=== PATIENT | male | born 1980 | race Caucasian/White ===

== ENCOUNTER 2016-04-26 11:28 | Inpatient (IN) | payer OTHER ==
[~2016-04-26] VITALS: Ht 175.3 cm; Wt 100.7 kg
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
--- NOTE | ~2016-04-26 | CLPRLASSUM ---
PATIENT: NICKOLAS LYMAN | | [facility] UNIT #: [id number] | [address] AGE/SEX: 36 M : 82 | [address] | [place] [phone] ADMIT/REG DATE: 04/26/16 | ROOM: [facility] LOC: ADTC | ADTC | Client Problem List/Assessment Summary Date: 05/01/16 Problems identified by the client: addiction, family, self-will/stubbornness-lack of HP, low self-esteem/forgiveness of others and self, relapse prevention Problems identified by significant others: addiction, codependency("depend on women to make me feel good about myself") Client's Strengths: big heart, strong will(need to be stubborn for working the program) Problem List: Code: T Client continues to use alcohol and drugs despite ongoing negative consequences. Code: T Client is experiencing family and distancing as a result of past alcohol & drug usage. Code: T Client continually sabotages his recovery by pushing others and God away because of his stubbornness/self-will which leads back to his abuse of chemicals. Code: T Client struggles with forgiving self (low self-esteem) and others which hurts his recovery. Code: T Client relapsed after prior treatments, partly due to codependency/seeking happiness from women relationships. Code Aviles: T: to be addressed during course of treatment O: problem noted, expected to resolve itself with abstinence--specific tx plan not required R: problem noted, will be referred upon discharge PRIMARY COUNSELOR: Alisson De Leon
--- NOTE | ~2016-04-26 | TXPLANREV ---
"PATIENT: NICKOLAS LYMAN | | [facility] UNIT #: [id number] | [address] AGE/SEX: 36 M : 82 | [address] | [place] [phone] ADMIT/REG DATE: 04/26/16 | ROOM: [facility] LOC: ADTC | ADTC | Treatment Plan/Staffing Review Date: 05/10/16 Treatment plan was reviewed and determined appropriate as written: yes, client is working on Yovia letters and son was able to come to the family program. Treatment plan was reviewed and the following changes/addition/deletions are necessary: Discharge plans were reviewed and determined appropriate as previously documented: Discharge plans were reviewed and determined to be as follows: Client is scheduled to discharge on 05/24/16, was applying to the [facility] who said there are at least 4-5 ahead of him and no scheduled opening for him in next couple months. His HHS worker is paying for his rent while here and wants to reunite him as soon as he gets out so could do outpatient treatment following residential. Other pertinent issues discussed during this staffing review include: Client has voiced wanting to be done with treatment as has had multiple prior treatments but staff voiced that he has sabotaged self in past and needs to learn what he is missing. Staff Present: Carmen Almaraz, Zara Tavarez, Page Rucker, Jonh Suarez PRIMARY COUNSELOR: Alisson De Leon Client Signature Counselor Signature Date Time "
--- NOTE | ~2016-04-26 | INDIVTXPL2 ---
"PATIENT: NICKOLAS LYMAN | | [facility] UNIT #: [id number] | [address] AGE/SEX: 36 M : 82 | [address] | [place] [id number] ADMIT/REG DATE: 04/26/16 | ROOM: [facility] LOC: ADTC | ADTC | Individualized Treatment Plan DATE: 05/03/16 Problem Statement/Issue Identified: Client continues to use alcohol and drugs despite ongoing negative consequences. Goal: Client is to learn about alcoholism/drug addiction, identifying his consequences of his use and learn how to work a stronger program of recovery to stay clean/sober. Objectives/Activities to achieve goal: 1. Client is to fill out Getting Started and Step 1 packet, identifying 10-15 ways his use hurt him/others. Share with counselor and share in group. Due Date: 05/10/16 Complete: Incomplete: 2. Client is to get and use sponsor weekly while in treatment as didn't use sponsor in prior recovery attempts. Report progress to counselor. Due Date: ongoing Complete: Incomplete: 3. Client is to attend and talk at AA/NA meetings weekly, pick topic in meeting on a relapse trigger to get ideas/help and share progress with counselor. Due Date: ongoing Complete: Incomplete: Client Signature Date Counselor Signaure: Date Outcome/Measurement of Progress Towards Goal: Counselor Signature: Date "
--- NOTE | ~2016-04-26 | INDIVTXPL2 ---
"PATIENT: NICKOLAS LYMAN | | [facility] UNIT #: [id number] | [address] AGE/SEX: 36 M : 82 | [address] | [place] [phone] ADMIT/REG DATE: 04/26/16 | ROOM: [facility] LOC: ADTC | ADTC | Individualized Treatment Plan DATE: 05/10/16 Problem Statement/Issue Identified: Client is experiencing family and distancing as a result of past alcohol & drug usage. Goal: Client is to attend Family Program and look at how his addiction hurts him and family, and work on owning his behavior/feelings/building better communication with family. Objectives/Activities to achieve goal: 1. Client is to attend Family Educational Program (with son if son can come) and participate in family program. See notes. Due Date: 05/14/16 Complete: Incomplete: 2. Client is to have family session with son (if son can come) and work on better communication. See counselor notes. Due Date: ongoing Complete: Incomplete: 3. Client is to write feelings letters to help process feelings with/about family members. Share with group/son/counselor. See notes. Due Date: ongoing Complete: Incomplete: Client Signature Date Counselor Signaure: Date Outcome/Measurement of Progress Towards Goal: Counselor Signature: Date "
--- NOTE | ~2016-04-26 | INDIVTXPL2 ---
"PATIENT: NICKOLAS LYMAN | | [facility] UNIT #: [id number] | [address] AGE/SEX: 36 M : 82 | [address] | [place] [phone] ADMIT/REG DATE: 04/26/16 | ROOM: [facility] LOC: ADTC | ADTC | Individualized Treatment Plan DATE: 05/10/16 Problem Statement/Issue Identified: Client relapsed after prior treatments, partly due to codependency/seeking happiness from women relationships. Goal: Client is to learn about relapse prevention/codependency, identifying his relapse triggers and develop a plan of how to avoid relapse. Objectives/Activities to achieve goal: 1. Attend Relapse Prevention classes every Saturday and participate. See class note. Due Date: 05/24/16 Complete: Incomplete: 2. Client is to attend lecture on Codependency and read symptoms of unhealthy relationships. Discuss with counselor how he relates. Due Date: 05/15/15 Complete: Incomplete: 3. Fill out Relapse Prevention packet identifying top 5-10 relapse triggers, share with counselor and discuss ways to cope and succeed in recovery. Due Date: 05/24/16 and ongoing Complete: Incomplete: Client Signature Date Counselor Signaure: Date Outcome/Measurement of Progress Towards Goal: Counselor Signature: Date "
--- NOTE | ~2016-04-26 | INDIVTXPL2 ---
"PATIENT: NICKOLAS LYMAN | | [facility] UNIT #: [id number] | [address] AGE/SEX: 36 M : 82 | [address] | [place] [phone] ADMIT/REG DATE: 04/26/16 | ROOM: [facility] LOC: ADTC | ADTC | Individualized Treatment Plan DATE: 05/10/16 Problem Statement/Issue Identified: Client continually sabotages his recovery by pushing others and God away because of his stubbornness/self-will which leads back to his abuse of chemicals. Goal: Client is to work on building closer reliance on Sponsor, HP/God, AA/NA and learn how to not sabotage self/his recovery by relying on self-will. Objectives/Activities to achieve goal: 1. Client is to read page 62 of Big Book and discuss 3 ways he sees it applying to himself with counselor. Due Date: 05/17/16 Complete: Incomplete: 2. Client is to continue talking with sponsor while in treatment, plus praying to HP daily. Share progress with counselor. Due Date: ongoing Complete: Incomplete: 3. Client is to attend and participate in Spirituality Class every Saturday while in treatment. See notes. Due Date: 05/24/16 Complete: Incomplete: Client Signature Date Counselor Signaure: Date Outcome/Measurement of Progress Towards Goal: Counselor Signature: Date "
--- NOTE | ~2016-04-26 | INDIVTXPL2 ---
"PATIENT: NICKOLAS LYMAN | | [facility] UNIT #: [id number] | [address] AGE/SEX: 36 M : 82 | [address] | [place] [phone] ADMIT/REG DATE: 04/26/16 | ROOM: [facility] LOC: ADTC | ADTC | Individualized Treatment Plan DATE: 05/10/16 Problem Statement/Issue Identified: Client struggles with forgiving self (low self-esteem) and others which hurts his recovery. Goal: Client is to work on building his self-esteem and ability to forgive self/others to strengthen his recovery. Objectives/Activities to achieve goal: 1. Client is to write 10 good qualities about himself and intervew 4 staff and 6 peers to name 2 qualities they see in him(he is to add them to his list). Share with counselor. Due Date: 05/22/16 Complete: Incomplete: 2. Client is to read 552, process his feelings/resentments he has with parents with counselor and/or group. Due Date: 05/24/16 Complete: Incomplete: Client Signature Date Counselor Signaure: Date Outcome/Measurement of Progress Towards Goal: Counselor Signature: Date "
--- NOTE | ~2016-04-26 | TXPLANREV ---
"PATIENT: NICKOLAS LYMAN | | [facility] UNIT #: [id number] | [address] AGE/SEX: 36 M : 82 | [address] | [place] [phone] ADMIT/REG DATE: 04/26/16 | ROOM: [facility] LOC: ADTC | [facility] | Treatment Plan/Staffing Review Date: 05/17/16 Treatment plan was reviewed and determined appropriate as written: Client is finishing up his Relapse Prevention packet, is working on trusting others to help him instead of self-will. Start on self-esteem Treatment plan was reviewed and the following changes/addition/deletions are necessary: Will add write letter apologizing/making ammends to self!! Discharge plans were reviewed and determined appropriate as previously documented: Client is scheduled to discharge on 05/24 but it is now changed to 05/22/16 so he can get to work as has rent due 05/30/16 plus will be having son come and live with him. He will be referred to aftercare counseling and group here at [facility] along with 3-7 AA/NA meetings a week and talking to sponsor daily. Discharge plans were reviewed and determined to be as follows: Other pertinent issues discussed during this staffing review include: Client has certainly made visible progress this past week with setting aside self-will and showing acceptance and trust of others helping him and listening to their suggestions. He also admits he never fully accepted powerlessness until [facility] took his son, which hurt him terribly that he is fully ready to work this AA program and got an AA sponsor. He states he did NA before but likes AA best and never had a sponsor he used before, so is not doing 1/2measures this time. Staff Present: Dinesh Almaraz, Zara Tavarez, Page Rucker, Ana Laura Garrett, Elliott [place] PRIMARY COUNSELOR: Alisson Moises Client Signature Counselor Signature Date Time "
--- NOTE | 2016-04-26 14:11 | NUR ---
ADMISSION NOTE Client is a 36 y/o male referred to treatment by Riana and brought here today from their [facility] by CSU staff. Client had been in the CSU for 6 days. Client states NKMA and brings no medications with him today. Client states DOC is meth, last used 6 days ago in the amount of 0.25 oz. Client resides in [place] alone and is unsure of family participation in family group. Rights/Responsibilities: Copy given and explained to client. Signed and accepted by client. Client oriented to physical lay out of the ADTC unit, given Big Book and admission packet. A Jose was assigned. Mike
--- NOTE | 2016-04-26 15:30 | NUR ---
IS 1 hr/ Client and counselor got reacquainted, he was oriented to counseling and his GS packet which is his first assignment. He asked does he have to do everything he did last tx, and counselor said think of GS as what he wants his peers to know to better support/help him in recovery. He says he has never used the sponsor and didn't ever do step 4. He was at [facility] for 3 months and had good recovery he felt, he was dating a gal he met in treatment but he didn't see her much cause busy with house, job, son and when got custody of son had to leave the [facility] but didn't do any aftercare at that point, and spent more time with female, he shared he is all about "fixing" others and so needs help with codependency. This treatment he says he will have nothing to do with women, he wants his son back and actually is greatful to the [facility] intervention when his son didn't show up to school, as it helped motivate him to get here. He says he can't focus unless on meth, he feels normal on meth, he was tearful but fought the tears back. Client said he knows his son is mad at him, age 13, and is living with sister. He would love to go back to [facility] "It was great, they helped him with budgeting, EMDR," and more. He wishes he could stay there 6 months but his son may not be able to live with sister that long. Client says lorrie his GF cheated on him he freaked out and hurt himself to get even, which he said this is what he does and it doesn't hurt anyone but himself. He was tearful as he said his son is doing same thing by refusing to go to school, being rebellious, etc. Plan to go over BPS next session.
--- NOTE | 2016-04-26 18:28 | NUR ---
Education: 1 Hour. Client watched "Picking up the Pieces" video.
--- NOTE | 2016-04-26 22:50 | NUR ---
Tech note: Clt played a game for recreation and attended onsite AA mtg. Clt was searched, checked into rooms, seen by and had first intro to grp. SE was coming to tx
--- NOTE | 2016-04-27 04:09 | NUR ---
tech note: client was motionless in no distress at all bed checks.
--- NOTE | 2016-04-27 13:00 | NUR ---
PEER REVIEWS 1 HR: Clt participated in peer review process and was able to give open and honest feedback to those receiving a review.
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
--- NOTE | 2016-04-27 16:02 | NUR ---
Tech Note: Client watched a film entitled "Nightmare on [address]" and is working on Getting Started.
--- NOTE | 2016-04-27 22:53 | NUR ---
TECH NOTE: Client participated in reading guidelines, watched tv/movies, and attended off site AA meeting. SE: tori
--- NOTE | 2016-04-28 04:20 | NUR ---
BED NOTE: Client was in bed, motionless with eyes closed all bed checks
--- NOTE | 2016-04-28 16:17 | NUR ---
Tech Note: Client went to an off-site AA Meeting. Client stated that he is working on Step One and "Grief."
--- NOTE | 2016-04-28 21:06 | NUR ---
Tech note: Client watched basketball or worked on beaded projects for rec, attended offsite AA meeting. Watched Tv and movies SE:rec-doing beads
--- NOTE | 2016-04-29 04:25 | NUR ---
BED NOTE: Client was in bed, motionless with eyes closed first two checks, Was in RR last check
--- NOTE | 2016-04-29 16:42 | NUR ---
Tech Note: Client participated in Big Book Study, chapter two. Client stated that he is working on, "Grief." Client received visitors.
--- NOTE | 2016-04-29 17:04 | NUR ---
Tech Note: Client had his sister and his son come in for a visit. The sister brought a pair of track pants and a hoodie in for the client. They had been recently purchased and a receipt accompanied the clothing. Client asked me if we ([employer]) could get into the safe. He was told that he would have to ask during normal business hours (8 to 5, M-F). A very short time later client and sister were walking toward the tech station and were arguing. Tech heard sister state "I didn't come here to put up with your shit" and client responded "well go ahead and leave then". Sister did leave, with client's son. Tech asked client what the argument was about. Client stated that sister expected to be immediately reimbursed for clothing. Client also said that sister made a comment that it was "his problem that he is here in treatment".
--- NOTE | 2016-04-29 22:57 | NUR ---
Tech Note : Client attended AA panel/speaker. Client went to an onsite SITE PROJECT MANAGER meeting. SE: Family visit
--- NOTE | 2016-04-30 04:54 | NUR ---
Bed note : Client was asleep and in no distress at all bed checks. Client did get up at 12;30 to state that it was to hot in his room.
--- NOTE | 2016-04-30 09:55 | NUR ---
Tech notes: Client is working on Getting started.
--- NOTE | 2016-04-30 11:30 | NUR ---
Experiential Group 1.5 hr/ Clients all participated in Family sculpturing by role-playing, feedback or relating. They also shared about coming from healthy and unhealthy homes.
--- NOTE | 2016-04-30 13:26 | NUR ---
Education note: Client watched a video "It can't happen to me".
--- NOTE | 2016-04-30 16:00 | NUR ---
RECOVERY 101 1 HR/ Clients all shared and asked questions in discussions on recovery, what to work on in treatment, how to get a sponsor, opening up while here to get everything out, feelings letters, family program and EMDR therapy.
--- NOTE | 2016-04-30 18:08 | NUR ---
Education Note: 1 hour lecture on feelings given by counselor
--- NOTE | 2016-04-30 22:35 | NUR ---
TECH NOTE: Client played charHeadspace in REC and attended on site NA meeting. SE: trying to work on his language
--- NOTE | 2016-05-01 04:23 | NUR ---
Bed note: Client was in bed with eyes closed and no distress at all bed checks, except up at 2nd bed check to use bathroom and get drink
--- NOTE | 2016-05-01 11:25 | NUR ---
FAMILY NOTE- Clients sister and dad were called with no answer. Clients dad had come to the family program at 2pm but no release was found so he was turned away (they had come a week early) and he had brought a different relative that client said he doesn't want in the family program. Did call clients dad and client left voicemail that he can come to family and if could bring his son too. Counselor called a 2nd time but no answer. Client said he would try to call his sister in the evening after work.
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
--- NOTE | 2016-05-01 14:47 | NUR ---
Education 0.5 Hour: Client attended a presentation by an outwside speaker who spoke on, "Cross Addiction."
--- NOTE | 2016-05-01 14:55 | NUR ---
Tech Note: Client particiipated in light stretching for morning exercise period and went for an outdoor walk in the afternoon. Client stated that he is working on, "How to Get Started in Treatment."
--- NOTE | 2016-05-01 18:48 | NUR ---
Relapse Prevention: 1.0 hours, 04/17, Client attended and actively participated in relapse prevention education which focused on identifying internal relapse triggers and cues.
--- NOTE | 2016-05-01 22:59 | NUR ---
Tech note: Client participated in beaded project for rec and attended an onsite AA meeting. SE; Meeting with counselor
--- NOTE | 2016-05-02 03:56 | NUR ---
Bed Note; Client was asleep and in no distress at all bed checks.
--- NOTE | 2016-05-02 09:30 | NUR ---
[facility] Track [facility]aser met with clts after community because he mentioned being concerned about needing to go to lab for a blood. He was rubbing his arm and turned white. I work with him after [facility] by helping him install a safe place to use while at the lab. I did ask him to continue to use every night. He was familiar with EMDR from the [facility].
--- NOTE | 2016-05-02 09:53 | NUR ---
Tech notes: Client is working on Getting started , Fl's and mtg with marisa.
--- NOTE | 2016-05-02 11:30 | NUR ---
GROUP 1.5 HRS. 1:11 Group discussion included family issues and HOW TO GET STARTED IN TREATMENT assignments. This client actively involved in discussion and offered insightful feedback to peers. He is redirected to allow others a chance to share.
--- NOTE | 2016-05-02 12:43 | NUR ---
Education note: Client attended education by [facility].
--- NOTE | 2016-05-02 17:50 | NUR ---
SPIRITUaL EDUCATION 1 HR. Todays topic after orienting newcomers was GRATITUDE with information taken from ATTITUDES OF GRATITUDE.
--- NOTE | 2016-05-02 19:18 | NUR ---
Education: 1 Hour. Client attended "Unresloved Anger" lecture and discussion presented by staff.
--- NOTE | 2016-05-02 22:59 | NUR ---
Tech note; Client played catch phrase for rec and attended an onsite NA meeting. SE; Having his blood drawn.
--- NOTE | 2016-05-03 04:29 | NUR ---
Bed Note: Client was asleep and in no distress at all bed checks.
--- NOTE | 2016-05-03 10:39 | NUR ---
Tech Note: Client participated in light stretching for morning exercise and stated that he is working on writing a Feeling Letter.
--- NOTE | 2016-05-03 14:17 | NUR ---
Group 1.5 Hr Ratio 1:11/Topics today were a feelings letter and a GS packet. Client shared how he could relate to having a difficult time writing feelings lettes and having expatations of others.
--- NOTE | 2016-05-03 17:00 | NUR ---
FAMILY EDUCATION 3 HRS. Client was accompanied by his dad. They took part in the discussion on the disease concept. Client shared chemical history and consequences. Dad shared that he is recovering alcoholic sober 2 years.
--- NOTE | 2016-05-03 17:47 | NUR ---
Education 1 Hour: Client heard a presentation from a member of the recovery community who shared his experience, strength and hope.
--- NOTE | 2016-05-03 23:36 | NUR ---
TECH NOTE: Client played Catch Phrase for REC, participated in Guided Meditation and attended on site AA meeting. Redirected for laughing during GM SE: REC
--- NOTE | 2016-05-04 02:16 | NUR ---
Education 1HR: Clt watched educational video entitled "Don't Meth With Me".
--- NOTE | 2016-05-04 04:51 | NUR ---
BED NOTE: Client was in bed, eyes closed and motionless all three bed checks
--- NOTE | 2016-05-04 11:30 | NUR ---
Group 1.5hr/ 11:1 Clients heard peer share GS packet, gave feedback and got into deep discussions about recovery.
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
--- NOTE | 2016-05-04 15:34 | NUR ---
Tech Note: Client watched a video entitled "The Enablers" and is working on Feelings Letters.
--- NOTE | 2016-05-04 20:43 | NUR ---
TECH NOTE: Client participated in reading guidelines, watched TV/movies, used phone and attended off site AA meeting SE: meeting with counselor
--- NOTE | 2016-05-05 04:46 | NUR ---
BED NOTE: Client was in bed, motionless with eyes closed all bed checks.
--- NOTE | 2016-05-05 09:58 | HP ---
ADMIT: 04/26/2016 RM/LOC: [facility] MR#: [id number] [facility] [address] [place] [id number] NICKOLAS LYMAN [address] [place] [address] History and Physical SEX: M AGE: 36 : 1980 DATE OF SERVICE: CHIEF COMPLAINT: Chemical dependency. HISTORY OF PRESENT ILLNESS: The patient is a 36-year-old , white male, admitted to residential level treatment at [facility] after detox at [facility] April 20 through the . [facility] Protective Services came to evaluate a complaint, and they asked him to submit a urine for drug screen. He submitted it and had a dirty for meth. His 13-year-old son was then removed from his house and place in Child Protective Services. He checked himself into treatment, wants to get clean, straight, and sober, so he can regain custody of his son. Nickolas' drug of choice on admission is methamphetamines. He first started using it around 13 years of age with cousins. He states he has done it daily off and on ever since. He has been doing IV off and on for years. His heaviest years use was 2012 to 2015, when he used up to an 8-ball or two daily. States since going through treatment and getting out in May 2015, he was clean for a number of months. He ultimately relapsed and states he relapsed probably sometime last summer. States he was using meth daily for probably 4 to 6 months. He has used up to an 8-ball a day via IV. He denies sharing needles or using dirty needles. He states he was dealing out of his home for 3 or more months. He denies any current legal charges pending. Second drug of choice is cannabis. He states he initially started smoking that with his cousins as well n grade school. In grade school, he smoked about once a month. In [employer], he smoked it daily off and on. About high school, he was smoking up to 0.5 ounce a week and smoked on a daily basis. His heaviest use was 17 to 26 when he smoked a 0.5 ounce a week. States he uses marijuana intermittently over the last 5 years. States since getting out of treatment last May, he has only used marijuana twice. Third drug of choice is alcohol. He first started drinking at 8 years of age with his father. In grade school, he drank once a year. In [employer], he drank 6 to 8 beers on weekends. In high school, he drank 12 to 13 beers on weekends. His heaviest drinking was 19 to 31 when he would have 4 to 6 beers every night, 6 to 12 plus hard liquor on weekends. He admits to 1 prior DUI. No history of alcohol withdrawal seizures are noted. States he has only drank 1 or 2 times in the last year. Additionally, he admits to using cocaine, once acid, once heroin, once mushrooms around 15 times in the past. PAST MEDICAL HISTORY: OPERATIONS: Include appendectomy and a benign lesion on his right chest. ILLNESSES: Include a history of sleep disorder in the past along with chronic anxiety, but after further discussion, he thinks he likely had ADHD as a child ADMIT: 04/26/2016 RM/LOC: [facility] MR#: [id number] [address] [place] [id number] NICKOLAS LYMAN [address] [place] [id number] History and Physical SEX: M AGE: 36 : 1980 and problems concentrating, sitting down and staying on task and continues to struggle with that. MEDICATIONS: None. ALLERGIES: NONE KNOWN. SOCIAL HISTORY: Is that of a 36-year-old, white male. He previously worked as a izabella. He has 4 children, 1 of which he had previously had custody. He quit smoking in March 2016. FAMILY HISTORY: Includes coronary artery disease in his mother and paternal grandmother, cancer in paternal grandfather, diabetes in maternal and paternal grandmothers, stroke in paternal grandmother. Most of his cousins and relatives including parents drink and do drugs. Grandparents did not use drugs or alcohol. REVIEW OF SYSTEMS: Remarkable for anxiety, insomnia, and problems concentrating and staying on task. Remainder review of systems are negative. PHYSICAL EXAMINATION: VITAL SIGNS: He is currently 5 foot 9 inches, with a weight of 100.7 kg. Blood pressure 128/77, pulse 87, and temp 97.5. GENERAL APPEARANCE: Is that of a 36-year-old athletic, very muscular male, who is alert, oriented, in no acute distress. HEENT: Pupils are reactive. Extraocular muscles are intact. TMs normal. Throat unremarkable. NECK: Without nodes or masses. Dentition, good repair. HEART: Regular without murmur. LUNGS: Clear. ABDOMEN: Soft, nontender, benign. /RECTAL: Deferred. EXTREMITIES: Reveal no clubbing, cyanosis, edema, or splinter hemorrhages. NEURO: Grossly normal including light touch, strength, DTRs. LABORATORY DATA: Labs done in [facility] on April 20 include a CBC, UA, and chemistry panel that are normal. ASSESSMENT: 1. Stimulant use disorder, severe with history of IV use. 2. Cannabis use disorder, severe, in partial remission. ADMIT: 04/26/2016 RM/LOC: [facility] MR#: [id number] [facility] [address] [place] [phone] NICKOLAS LYMAN [address] [place] [id number] History and Physical SEX: M AGE: 36 : 1980 3. Alcohol use disorder, severe, in partial remission. 4. Substance-induced mood disorder. 5. Rule out attention-deficit hyperactivity disorder and increased risk for human immunodeficiency virus and hepatitis C given his history of IV drug use. PLAN: We will place him on a multivitamin. We will place him on a Wellbutrin for substance-induced mood disorder and probable ADHD. Obtain HIV and hepatitis C testing on him given his increased risk of exposure. We will proceed with drug and alcohol abuse dependency treatment and counseling and further evaluation and management based on course during hospitalization. Please see his hospital record for the details. Cristopher Marks MD/ kandis JOB #: [id number] CC: Cristopher Marks, Attending Physician NO FAMILY PHYSICIAN, Family Physician
--- NOTE | 2016-05-05 15:35 | NUR ---
Tech notes: Client attended NA panel this morning and working on Step 1, Fl's. Had visit.
--- NOTE | 2016-05-05 18:37 | NUR ---
tech note: client attended offsite recovery event.
--- NOTE | 2016-05-06 04:37 | NUR ---
Bed Note: Clt lay motionless in bed with eyes closed showing no distress at all bed checks.
--- NOTE | 2016-05-06 15:06 | NUR ---
Tech Note: Client participated in big book study and is working on step 1 and FL's.
--- NOTE | 2016-05-06 23:12 | NUR ---
Tech note: Watched Floxxbowdoc, attended [employer] meeting SE:angelo
--- NOTE | 2016-05-07 04:33 | NUR ---
BED NOTE: Client was in bed, motionless, with eyes closed all bed checks.
--- NOTE | 2016-05-07 10:19 | NUR ---
Tech notes: Client is working on Step 1.
--- NOTE | 2016-05-07 11:30 | NUR ---
Group 1.5hr/ 2:22 Clients all participated in THE WALL reading, drawing and sharing about their flores with the group showing character defects and relapse triggers, plus what has helped them go gain hope and support in taking down their wall.
--- NOTE | 2016-05-07 12:50 | NUR ---
Education note: Client attended education by [facility], HIV testing.
--- NOTE | 2016-05-07 18:19 | NUR ---
Education: 1 Hour. Client attended "Forgiveness" lecture given by staff.
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
--- NOTE | 2016-05-07 22:45 | NUR ---
tech note: client attended Family. Client was redirected for using loud foul language in the hallway after the NA meeting. SE: Family.
--- NOTE | 2016-05-08 05:12 | NUR ---
Tech Note: Clt lay motionless in bed with eyes closed showing no distress at all bed checks.
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
--- NOTE | 2016-05-08 13:50 | NUR ---
Education 1 Hour: Client attended a presentation on "Tobacco Educaton."
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
--- NOTE | 2016-05-08 15:16 | NUR ---
Tech Note: Client participated in light stretching for morning exercise and walked in the halls in the afternoon. Client stated that he is working on reading the Big Book and writing Feelings Letters.
--- NOTE | 2016-05-08 15:55 | NUR ---
Relapse Prevention, 1.0, Client attended and actively participated in relapse prevention education which focused on the relapse quiz "What Do You Know About Relaps?"
--- NOTE | 2016-05-08 22:42 | NUR ---
Education note: 1 hour, lecture given by counselor on what ahumada are you willing to pay.
--- NOTE | 2016-05-08 22:58 | NUR ---
Tech note: Instead of rec clients went to an alumni meeting and attended an onsite AA meeting. His S/O was at the meeting. SE; Group
--- NOTE | 2016-05-09 04:17 | NUR ---
Bed Note: Client was in bed with eyes closed and in no distress at all bed checks. Did get up for a drink around 4am.
--- NOTE | 2016-05-09 10:22 | NUR ---
Tech Notes: Client is working on Step 1.
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
--- NOTE | 2016-05-09 17:53 | NUR ---
ducation Note: Client attended education speaker Zheng
--- NOTE | 2016-05-09 20:41 | NUR ---
Education: 1 hour lecture on boundaries given by counselor
--- NOTE | 2016-05-09 22:09 | NUR ---
Tech note : Client participated in rec by playing catch phrase and attended an onsite NA meeting. SE; loosing 5 peers
--- NOTE | 2016-05-10 03:50 | NUR ---
Bed note : Client was motionless and in no distress at all bed checks.
--- NOTE | 2016-05-10 10:16 | NUR ---
Tech Note: Client participated in light stretching for morning exercise. Client stated that he is working on Step One.
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
--- NOTE | 2016-05-10 13:37 | NUR ---
SPIRITUAL EDUCATION 1 HR. Topics today were on getting out of self centered behavior and recovery slogans. Clients made BB bookmarks w slogans and also anonymously wrote welcoming letters for newcomers.
--- NOTE | 2016-05-10 13:55 | NUR ---
Education 1 Hour: Client watched the vidoe, "Predator" by Brandon Treviño.
--- NOTE | 2016-05-10 14:00 | NUR ---
FAMILY SESSION .5 HR/ dID meet with client and his 13 year old son. Son is very nervous and quiet, fidgeted with his hands the entire time except when counselor had them turn Knee to Knee and talk about their feelings. Client did great job and showed loved and compassion, encouraged son and told him he loves him, made ammends, etc. Son did own glad dad and him lived together when [facility] intervened on his mom and was sad when dad started using, knew by all the people and client said also his weight loss. Client expressed that it was wrong of him to have GF and this time will focus on son and not be in any relationship as needs to get strong in recovery and focus on their relationship. Client admitted to son that it took focus and time away from son while he was in relationship. They llike to go to AA/NA together, be outside together, and client wants to do alot more, had fun boating with a deanne that is now his sponsor and hope to do more of that.
--- NOTE | 2016-05-10 16:44 | NUR ---
FAMILY EDUCATION 3 HRS. Client was accompanied by his 13 year old son. They took part in the discussion on the disease concept. Client shared chemical history and the consequences.
--- NOTE | 2016-05-10 21:00 | NUR ---
Education: 1 Hour. Client attended "Spiritual Awakening" video.
--- NOTE | 2016-05-10 23:00 | NUR ---
Tech Note: Client played a game for recreation and attended onsite A.A. Meeting. SE: One on One with son
--- NOTE | 2016-05-11 04:11 | NUR ---
Tech Note: Client was motionless with no distress at all bed checks.
--- NOTE | 2016-05-11 13:00 | NUR ---
PEER REVIEWS 1 HR: Clt participated in peer review process and was able to give open and honest feedback to those receiving a review.
--- NOTE | 2016-05-11 15:48 | NUR ---
Tech Note: Client joined in outdoor group walk, watched "Marijuana" video (by Brandon Treviño) and is working on Feelings Letters.
--- NOTE | 2016-05-11 16:41 | NUR ---
Morning Group, 04/09, 1.5 hours, Client attended and actively participated in group. Client read his feelings letter to his son and became emotional.
--- NOTE | 2016-05-11 23:16 | NUR ---
TECH NOTE: Client participated in reading guidelines, watched tv/movies and attended optional AA meeting. c/o roommate foul oder and poor personal hygiene. SE:AA meeting
--- NOTE | 2016-05-12 04:19 | NUR ---
Bed Note: Clt lay motionless in bed with eyes closed showing no distress at all bed checks.
--- NOTE | 2016-05-12 13:30 | NUR ---
COUNSELOR NOTE Clt was pulled into this office with male peer RODNEY, with whom he had gotten into an argument w/ earlier and the previous night. He was asked to use I see, I think, I feel statements. He stated, "I see you taking mine and everyone else's inventory, including my sponsors, I think you need to worry about your own, and I feel mad." The peer came back with something about clt's sponsor being on his phone, and in a meeting, but was stopped by this counselor, and this clt was asked to go on. He told peer he is tired of hearing him say he hates him (clt) when going into grps. Clt was asked why he didn't tell him how he felt, but his defense went up and he said he didn't want to hurt peers feelings, just like he didn't want to tell him he stinks. Peer stated he wishes he had told him, and explained it is his sox, and that he does shower. They had other harsh words until peer got up and said if this clt doesn't leave, he is and walked out.
--- NOTE | 2016-05-12 15:53 | NUR ---
Tech Note: Client attended an off-site AA meeting. Client stated that he is working on writing Feelings Letters. Client aired grievances between himsself and his roommate during community meeting. Client was moved to another room per on duty counselor.
--- NOTE | 2016-05-12 20:02 | NUR ---
TECH NOTE: Client played Charades in REC, attended off site AA meeting and watched tv/movies SE: phone
--- NOTE | 2016-05-13 04:38 | NUR ---
Bed Note: Clt lay motionless in bed with eyes closed showing no distress at all bed checks.
--- NOTE | 2016-05-13 14:41 | NUR ---
Tech Note: Client stated that he is working on reading the Big Book. Client wnet sor an optional outdoor walk.
--- NOTE | 2016-05-13 23:10 | NUR ---
Tech Note: Client attended A.A.Panel. Client used phone and watched tv. Client also attended the [employer] meeting. SE: [facility] meeting
--- NOTE | 2016-05-14 04:29 | NUR ---
Bed Note: Clt lay motionless in bed with eyes closed showing no distress at all bed checks.
--- NOTE | 2016-05-14 09:45 | NUR ---
Tech Notes: Client is working on Relapse Prevention. Missed morning meditation.
--- NOTE | 2016-05-14 13:45 | NUR ---
tuan note: Client attended speaker Erick Pelletier
--- NOTE | 2016-05-14 14:10 | NUR ---
IS .5 HR/ Client met with counselor when counselor first got here this AM for 10 minutes, saying he has made up his mind he wants to leave tomorrow as son is coming today and he feels he will be alright as this is his 10th treatment. Client heard running/leaving AMA is typical addiction reacting to circumstances he doesn't like and self-will, that we can staff it Saturday when Ana Laura is in staffing to discuss if this is good idea. Client was handed Addictive Unhealthy Relationships and Relapse packets, he said he has done them before. Then after group client was allowed to call his cargo handler to find out how this would affect his case but he found out he doesn't have caseplan so nothing is required yet so then he said he would likely leave treatment. He also found out the cargo handler couldn't find a ride for his son to get here today. Counselor suggested to pray about it after gets back from lunch. Then before family program client came to counselor saying he will leave and do IOP, he prayed and made decision, counselor confronted how often has self will been a part of his relapses, and he said most of the time. Then as walked toward front The family counselor said his son and father just showed up. He saw that as a sign he should stay and not leave til counselor tells him he is ready to leave.
--- NOTE | 2016-05-14 14:34 | NUR ---
Group 1.5 hr/ 8:1 Clients heard peers share GS packet and letter, this client was involved in relating and feedback. He did share a letter to his mom, feels he needs to let her go now, so he can be free and love her from a distance. He hates how his parents werent their for him and he has done the same thing with his son. He shared how he never felt the powerlessness over his DOC until [facility] came and took his son. He says this is the first time he fully realized and has acceptance/surrender with his drug use. He admits he wants to leave treatment and can do outpt or IOP somewhere else if need be. Counselor confronted that it would be risking his [facility] case to just walk out without first talking with his rolling chair pusher. Client heard peers share why he should stay and also how he is like a peer he has conflict with. (Counselor suggested he pray after lunch after he called his [facility] rolling chair pusher and found out he has no case plan yet, nothing is required yet.)
--- NOTE | 2016-05-14 21:00 | NUR ---
FAMILY EDUCATION 3 HRS., GROUP 2 HRS. 2:6 Client was accompanied by his dad and son. They took part in the discussion on the family roles, codependency and detachment. Client processed feelings letters to his son and tears were shed. Son was given an Alateen book and encouraged to participate. Dad owned that he did the same things to client that client owned doing to his son now. Dad was encouraged to write feelings letter to client.
--- NOTE | 2016-05-14 22:32 | NUR ---
Client attended Family. SE: Family
--- NOTE | 2016-05-14 23:01 | NUR ---
Education Note: One hour lecture on adult children of alcoholics given by counselor.
--- NOTE | 2016-05-15 04:03 | NUR ---
Bed Note: Client was in bed with eyes closed and motionless at all bed checks.
--- NOTE | 2016-05-15 14:34 | NUR ---
Tech Note: Client participated in group walk for exercise, watched the first half of Pleasure Unwoven for education and is working on Step 4.
--- NOTE | 2016-05-15 16:00 | NUR ---
Relapse Prevention, 04/16, 1.0 hours, Client attended and actively participated in relapse education which focused on compulsive behaviors and relapse.
--- NOTE | 2016-05-15 16:40 | NUR ---
Education Note: Client participated in Relapse Prevention education.
--- NOTE | 2016-05-15 16:56 | NUR ---
IS 1 hr/ Counselor and client discussed his "self-will" and he states he realizes he needs to not ever say "I know..." anymore, that he doesn't know. Did go over 2-3 addictive relationships symptoms that he had with recent last 2 gals and he sees he jumps fully into a relationship to quickly, but now is not even going to flirt with idea of a relationshis as needs to focus on being a "father" and using a sponsor, and working a program for himself. He said his house won't be a flophouse, but will be a recovery place for mature stable recovery guys (mainly AA this time) to hang out or watch football, plus to go camping, to do service work/volunteer, to call sponsor all the time, to get Big Book on tape and to go to Big Book meeting to understand what it is saying, etc!!! Client may of never relapsed before because he just learned and experienced "powerlessness" for the first time this time when [facility] came and took his son. Client is to practice saying "no" for the next 24 hours, then to say "I don't know" for the remainder of his treatment. He is concerned that he has spoiled food in Frig and it may smell up apt so may need to get frig cleaned out ALCON, a pass? friends in recovery do it?... Counselor will ask. He was proud that a peer asked for $ for cigs and he said "no", that he needs all his $ for him and his son!!
--- NOTE | 2016-05-15 18:18 | NUR ---
Education: 1 HOUR. Client attended "Codependency" lecture given by staff.
--- NOTE | 2016-05-15 22:21 | NUR ---
TECH NOTE: Client played Catch Phrase for REC, participated in Guided Meditation, and attended AA meeting. SE: talk with sponser
--- NOTE | 2016-05-16 04:32 | NUR ---
tech note: client was motionless in no distress @ all bed checks.
--- NOTE | 2016-05-16 11:11 | NUR ---
Tech notes: Client is working on Step 4 and Fl's.
--- NOTE | 2016-05-16 12:00 | NUR ---
AM GROUP 8:1/1.5 HR: Client and peers heard three clients process from assignments. Most were able to relate to behaviors and examples shared. Several asked clarifying questions, while others share from their own experiences. Client did not share assignments, but was active with feedback and support. He did relate to a young male peer who processed Page 10 of his Step One. 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
--- NOTE | 2016-05-16 13:17 | NUR ---
Morning Group, 04/09. 1.5 hours, Client attended and actively participated in group discussion. Client shared about his upbringing and how he could relate to another peer. Client offered advise to another client about letting go of past resentments.
--- NOTE | 2016-05-16 13:18 | NUR ---
Education note: Client attended speaker Mick for education.
--- NOTE | 2016-05-16 17:24 | NUR ---
SPIRITUAL EDUCATION 1 HR. We oriented newcomers to spirituality group, and todays activities were putting on presentations from parts of TOWARDS SPIRITUALITY book.
--- NOTE | 2016-05-16 22:35 | NUR ---
tech note: Client played Pictionary for recreation & attended onsite NA meeting. Client was redirected for his language during recreation and having candy in the hallway. Client tried to make a big deal during recreation when tech asked clients to all take a turn. SE: NA meeting.
--- NOTE | 2016-05-16 23:27 | NUR ---
Eduction: 1 Hour. Client attended "Disease Concept" lecture.
--- NOTE | 2016-05-17 05:35 | NUR ---
tech note: Client was motionless in no distress at all bed checks.
--- NOTE | 2016-05-17 10:05 | NUR ---
Tech Note: Client participated in Spiritual Enrichment. Client stated that he is working on reading the Big Book.
--- NOTE | 2016-05-17 13:00 | NUR ---
AM GRP 1.5 HRS, Ratio 1:10/ Clt offered good feedback and could relate to being in sick relationships, stating this next year he will concentrate on himself and his son.
--- NOTE | 2016-05-17 15:32 | NUR ---
Education 1 Hour: Client heard a panel of speakers from the local recovery community, who shared their experience, strength and hope.
--- NOTE | 2016-05-17 17:14 | NUR ---
FAMILY SESSION 1 HR/ Clients son was brought for a Family Day which he had already attended 1 week ago. Quickly scheduled client and son for a family session and called [facility] to arrange return ride for 1 hour. Client asked son to share about his day and son is quiet so gave no answer or 1 word answers. Counselor discussed the importance of them learning to communicate. And suggested if your day was a movie and you were writing the movie script give a run down of your day. He did share got up at 6, had cereal, road on bus, likes to ride in back, 1st class Science, etc. Client asked some other questions and at times son was quiet, and at times gave good response. His son got teary eyed, appears to have some grief to leave his 4 cousins and voiced it was nice to be a [place] school. He denies anyone bullying him here, but would like to be back in regular classes vs.Special school due to his misbehaviors of the past. Client did also share he knows it likely is scarey to come back home and if client will stay sober/clean but son denied that. He also shared how they use to do alot of activities that were fun but when in his addiction his son and owned this very compassionately/tenderly with son and shared how he is looking forward to being involved in sons life and named several things they like to do and friends they have been involved with. Client brought up orthodoxy as 1 thing they can do together and son brought up his friend that he has gone with on Saturday nights to [employer]. Counselor suggested to client to get recommendations from his sons current school to get back in regular school and to apply to [employer] to get help with 1 months rent. Client signed release for [employer]. He is to call [facility], he also talked with [employer] but they already did 1 mo rent for client.
--- NOTE | 2016-05-17 17:30 | NUR ---
IS .5 hr/ Did work with client for extra 1/2 hour after son left, to help with finding assistance for 1 months rent and discussed how he can continue to work on communication with son, he asked how he did. He did show tenderness and compassion with son, yet son and him did talk about structure with homework time is good and client offered to work on his stepwork same time as son is if that would encourage him, which was a great idea.
--- NOTE | 2016-05-17 23:20 | NUR ---
TECH NOTE: Client redecorated the building for [employer], participated in Guided Meditation and attended on-site AA meeting. SE: knowing his graduation date now
--- NOTE | 2016-05-18 11:30 | NUR ---
Group 1.5hr/ 9:1 Clients heard peers share GS/Step 1 packets and this client did share his page 10-11 of step 1. Did very good job owning how his addiction hurt his values and hurt important people in his life. He gave good feedback to others.
--- NOTE | 2016-05-18 13:00 | NUR ---
PEER REVIEWS, 1 HR: Clariel participated in peer review process and received his own. He heard he uses laughter to cover feelings, is hurt, ashamed, afraid and sad, uses intimidation and tough deanne act to build a wall, uses humor as a tool to be in the spotlight so he doesn't have to deal with himself, likes to be the boss, has shame and guilt, is like an angry teenager, cares too much about what others think, resents himself. He felt afraid, ashamed and glad.
--- NOTE | 2016-05-18 15:44 | NUR ---
Tech Note: Client watched the second half of Pleasure Unwoven for education and is working on the Big Book.
--- NOTE | 2016-05-18 20:17 | NUR ---
Tech note: client watched tv and movies, attended optional offsite meeting SE:all day
--- NOTE | 2016-05-19 16:19 | NUR ---
Tech Note: Client attended N.A.Panel and is working on Feelings Letters.
--- NOTE | 2016-05-19 20:01 | NUR ---
tech note: Client did service work at offsite location where clients attended the AA meeting. Client had an attitude toward tech when redirected for his language and stretching the telephone cord to far from the phone. Client talked on the phone & watched tv. SE: Phone.
--- NOTE | 2016-05-20 04:53 | NUR ---
Bed Note : Client had eyes closed and in no distress at all bed checks.
--- NOTE | 2016-05-20 16:02 | NUR ---
Tech note: Client missed community meeting - was sleeping. Client went to jain and sponsor visited.
--- NOTE | 2016-05-20 23:29 | NUR ---
TECH NOTE: Client attended AA panel, participated in community clean and watched tv/movies. Attended optional [employer] meeting SE: [employer]
--- NOTE | 2016-05-21 04:14 | NUR ---
BED NOTE: Client was in bed, motionless with eyes closed all three bed checks.
--- NOTE | 2016-05-21 10:37 | NUR ---
Tech notes: Client is working on BB and mtg with marisa.
--- NOTE | 2016-05-21 12:41 | NUR ---
Experiential Group 1.5 hr/ Clients all participated in family sculpturing by role-playing, feedback, and relating. They also shared what they needed to get help with and a gratitude. He did his family sculpture of him and his son the past month after his relapse and was tearful that his son felt rejected as he was in his room or gone more. He wants help wwith learning how to live sober and is grateful for 2nd chances.
--- NOTE | 2016-05-21 13:30 | NUR ---
Education note: Client watched video "It can't happen to me"
--- NOTE | 2016-05-21 14:00 | NUR ---
IS 1 hr/ Did meet with client, did go over his treatment plans and he has completed all of them. Went over more of his Relapse Prevention packet. He shared about firing his sponsor after he started dating a gal he broke up with while in treatment. He said he got his old sponsor back and that sponsor will come 10am Saturday to go with him and clean out his apartment. Client and counselor discussed things he can do in aftercare to work his program stronger and to build better parenting skills/communication. Client shared he will have to go through legal means to get visits with his other 3 kids which live 5-6 hours away. Was given copy of Continued Care plan after we filled it out and was given a medallion for successfully completing treatment. He is to do survey today.
--- NOTE | 2016-05-21 19:06 | NUR ---
Education 1HR: Clt attended lecture given by counselor on "Communication".
--- NOTE | 2016-05-21 22:21 | NUR ---
Tech note: Client participated in group by playing catch phrase. Client attended an onsite NA meeting. SE: Graduation coin
--- NOTE | 2016-05-22 05:04 | NUR ---
Bed note : Client was motionless with eyes closed at all bed checks.
--- NOTE | 2016-05-22 10:18 | NUR ---
Discharge Note: Client left with his sponsor. All property was released and meds were called in to [facility].
--- NOTE | 2016-07-15 15:25 | DS ---
ADMIT: 04/26/2016 RM/LOC: [facility] MR#: [id number] [facility] [address] [place] [id number] NICKOLAS LYMAN [facility] [place] [address] General Discharge Summary SEX: M AGE: 36 : 1980 ADMISSION DATE: 04/26/2016 DISCHARGE DATE: 05/22/2016 INDICATION FOR HOSPITALIZATION: Nickolas is a 36-year-old, , white male, admitted to residential level treatment at [facility] on 04/26/2016. He had previously been admitted to [facility] for detox on April 20 through the . He states Child Protective Services came to evaluate a complaint, asked him to submit a urine for drug screen. He tested positive for meth and his 13-year-old son was removed from his house by Child Protective Services. He subsequently checked himself into treatment. His drug of choice on admission is methamphetamine. Second drug of choice is cannabis. Third drug of choice is alcohol. Please see his admission H and P for further details regarding his history of present illness, past medical history, physical exam, and assessment at time of hospitalization. HOSPITAL COURSE: On admission, Nickolas was admitted to our residential level treatment coles. HIV and hepatitis C testing were ordered due to increased risk of exposure. Wellbutrin was ordered due to substance-induced mood disorder and a history of ADHD. He was started on a multivitamin. During treatment, his primary counselor assigned was Alisson De Leon. During treatment, he underwent individual and group therapy sessions on drug and alcohol abuse and dependency. He completed an educational series on substance abuse. His family was involved in his treatment program. He was overall accepting of substance abuse problems. He completed step 1 of Alcoholics Anonymous. Reason for discharge was completion of residential level treatment goals. Aftercare recommendations include sponsor assignment, outpatient counseling with active AA and NA meeting involvement 4-7 times weekly. Meds at the time of discharge include Wellbutrin SR 150 mg b.i.d. and a multivitamin. LABORATORY AND X-RAY DATA: Include May 02, hepatitis C testing that was negative. HIV tests were confidential and not available at time of discharge. ADMIT: 04/26/2016 RM/LOC: [facility] MR#: [id number] [address] [id number] INCKOLAS LYMAN [facility] [place] [id number] General Discharge Summary SEX: M AGE: 36 : 1980 FINAL DISCHARGE DIAGNOSES: Include: 1. Stimulant use disorder, severe, with a history of IV use. 2. Cannabis use disorder, severe, in partial remission. 3. Alcohol use disorder, severe, in partial remission. 4. Substance-induced mood disorder. 5. History of attention deficit hyperactivity disorder and increased risk of human immunodeficiency virus and hepatitis C given the history of IV drug use. PROCEDURES: Include drug and alcohol abuse dependency treatment and counseling. Please see his hospital record for the details. Cristopher Marks MD/ kandis JOB #: [id number] CC: Cristopher Marks MD, Attending Physician NO FAMILY PHYSICIAN, Family Physician
== END 2016-05-22 10:25 | disposition home or self-care (01) | DRG 895 ==
LOC: ADTC 11:28
PROVIDERS: ADMIT Family Medicine
DX: F15.20 Other stimulant dependence, uncomplicated (principal); F19.24 Other psychoactive substance dependence with psychoactive substance-induced mood disorder; F12.21 Cannabis dependence, in remission; F10.21 Alcohol dependence, in remission; F90.9 Attention-deficit hyperactivity disorder, unspecified type; Z72.89 Other problems related to lifestyle; Z87.891 Personal history of nicotine dependence; Z63.72 Alcoholism and drug addiction in family; Z65.3 Problems related to other legal circumstances